=== PATIENT | female | born 1970 | race Caucasian/White ===

== ENCOUNTER → 2019-05-28 | Outpatient (CLI) | payer OTHER ==
--- NOTE | 2019-05-28 15:07 | Diagnostic Imaging Report ---
EXAM: Right upper quadrant abdominal ultrasound INDICATION: Upper abdominal pain COMPARISON: None. TECHNIQUE: Transverse and longitudinal images of the right upper quadrant abdomen were obtained FINDINGS: Liver: Size: 13.2 cm in the right midclavicular line Appearance: Normal echogenicity, smooth contour Mass: No focal masses Gallbladder: There is sludge in the gallbladder. No gallbladder wall thickening, gallbladder distention, or pericholecystic fluid. Negative sonographic Ventura's sign. Gallbladder wall measures 3 mm. Bile Ducts: Intrahepatic Ducts: No dilatation Extrahepatic Ducts: Common bile duct measures 4 millimeters, no dilatation Pancreas: Visualized portions of the pancreatic head, neck and proximal body are normal. Kidney: The right kidney measures 9.5 cm without evidence of hydronephrosis or stone. Vessels: Aorta: Visualized portions are normal Inferior Vena Cava: Visualized portions are normal Main Portal Vein: 0.8 cm, normal size with hepatopetal flow. Free Fluid: No ascites or pleural effusion IMPRESSION: Mild sludge in the gallbladder. No sonographic evidence of cholecystitis. Signed by: Jane Chun MD on 05/28/2019 3:03 PM
== END ==
LOC: US 13:33
PROVIDERS: ATTEND Internal Medicine
DX: R10.10 Upper abdominal pain, unspecified (principal); K30 Functional dyspepsia; K82.9 Disease of gallbladder, unspecified
CPT/HCPCS: 76705

== ENCOUNTER → 2019-06-30 | Outpatient (CLI) | payer OTHER ==
[~2019-06-30] MED LIST: CALCIUM CARBON500 MG PO; MEGA RED PO; NORETHINDRONE0.35 MG PO; OMEPRAZOLE40 MG PO; ONE DAILY FOR1 EACH PO; PREBIOTIC PO; PROBIOTIC PO; VITAMIN C500 MG PO; [UNRECOGNIZED DRUG - OTHER] PO
--- NOTE | 2019-06-30 14:23 | Diagnostic Imaging Report ---
Hepatobiliary Scan with Gallbladder Ejection Fraction Clinical information: Persistent abdominal pain with bloating; Technique: Following intravenous administration of 6.6 millicuries of Tc-[id number] mebrofenin, dynamic images of the abdomen in the anterior projection were obtained through 60 minutes. Sincalide (CCK analog) 1.1 micrograms was administered intravenously over 30 minutes with additional imaging for determination of gallbladder ejection fraction. Discussion: Perfusion of the liver is normal. Extraction of tracer by the liver parenchyma is normal. Tracer appears promptly within the biliary tract. The gallbladder begins to fill by 18 minutes post injection of tracer and fills adequately. Tracer is seen in the small bowel during the sincalide infusion. The gallbladder ejection fraction with sincalide is 1% (normal greater than 40%). Impression: 1. Filling of the gallbladder excludes acute cystic duct obstruction/acute cholecystitis. 2. The decreased gallbladder ejection fraction of 1% supports the clinical diagnosis of chronic cholecystitis/gallbladder dyskinesia. Signed by: Dr. Sophie Anguiano M.D. on 06/30/2019 2:19 PM
== END ==
LOC: NM 10:57
PROVIDERS: ATTEND Internal Medicine
DX: K82.9 Disease of gallbladder, unspecified (principal)
CPT/HCPCS: 78227; A9537

== ENCOUNTER → 2023-01-09 | Outpatient (CLI) | payer OTHER | LOC: RAD 10:33 | PROVIDERS: ATTEND Internal Medicine | DX: J41.0 Simple chronic bronchitis (principal); R06.02 Shortness of breath | CPT/HCPCS: 71046 ==

== ENCOUNTER → 2023-01-22 | Outpatient (CLI) | payer OTHER | LOC: RESP 13:13 | PROVIDERS: ATTEND Internal Medicine | DX: J41.0 Simple chronic bronchitis (principal); R06.02 Shortness of breath | CPT/HCPCS: 94060; 94727; 94729 ==